=== PATIENT | male | born 1955 | race Caucasian/White ===

== ENCOUNTER → 2021-02-02 | Outpatient (REF) | payer BC, MEDICARE | LOC: M LAB REF 14:49 | PROVIDERS: ATTEND Ophthalmology | DX: D23.111 Other benign neoplasm of skin of right upper eyelid, including canthus (principal) ==

== ENCOUNTER → 2022-06-21 | Outpatient (CLI) | payer MEDICARE | LOC: M RAD 07:18 | PROVIDERS: ATTEND Physician Assistant Medical | DX: R91.1 Solitary pulmonary nodule (principal) ==

== ENCOUNTER 2023-11-10 13:09 | Emergency (ER) | payer MEDICARE ==
[~2023-11-10] VITALS: Ht 175.3 cm; Wt 148.1 kg
[2023-11-10 13:10] VITALS: BP 137/87; TEMP 98.9; O2SAT 93
[2023-11-10] MEDS ORDERED: NETA2.5D2 OP (13:16)
[2023-11-10] MEDS ORDERED: ATOR80TA59 PO (13:16)
[2023-11-10] MEDS ORDERED: CHLO125TA PO (13:16)
[2023-11-10] MEDS: BOOSTRIX VACCINE (TETANUS/DIPHTH/ACEL. PERTUSSIS) 0.5ML SYR IM ONE (13:50)
[2023-11-10] MEDS: LIDOCAINE W/EPINEPHRINE 1% 20ML VIAL SC ONE (14:45)
[2023-11-10] MEDS ORDERED: CEPH500C PO (15:32)
[2023-11-10] MEDS: CEPHALEXIN 500 MG CAP PO ONE (15:37)
== END 2023-11-10 15:48 | disposition home or self-care (01) ==
LOC: M ED 13:09
DX: S51.811A Laceration without foreign body of right forearm, initial encounter (principal); Y92.9 Unspecified place or not applicable; Y93.9 Activity, unspecified; Y99.9 Unspecified external cause status; Z23 Encounter for immunization; Z88.2 Allergy status to sulfonamides; Z79.2 Long term (current) use of antibiotics; Z79.899 Other long term (current) drug therapy

== ENCOUNTER → 2024-07-14 | Outpatient (CLI) | payer MEDICARE ==
[~2024-07-14] MED LIST: ATOR80TA59 PO; CEPH500C PO; CHLO125TA PO; NETA2.5D2 OP
== END ==
LOC: M PLAIMG 10:24
PROVIDERS: ATTEND Physician Assistant Medical
DX: R91.1 Solitary pulmonary nodule (principal)

== ENCOUNTER → 2024-07-27 | Outpatient (CLI) | payer MEDICARE | LOC: M RAD 07:19 | PROVIDERS: ATTEND Physician Assistant Medical | DX: I65.23 Occlusion and stenosis of bilateral carotid arteries (principal); N25.9 Disorder resulting from impaired renal tubular function, unspecified; I71.40 Abdominal aortic aneurysm, without rupture, unspecified; I70.1 Atherosclerosis of renal artery ==

== ENCOUNTER → 2024-10-29 | Outpatient (REF) | payer MEDICARE | LOC: M SMT 13:08 | PROVIDERS: ATTEND Urology | DX: R97.20 Elevated prostate specific antigen [PSA] (principal) ==

== ENCOUNTER → 2025-01-25 | Outpatient (CLI) | payer MEDICARE | LOC: M RAD 09:57 | PROVIDERS: ATTEND Physician Assistant Medical | DX: E05.20 Thyrotoxicosis with toxic multinodular goiter without thyrotoxic crisis or storm (principal) ==